=== PATIENT | male | born 1955 | race Caucasian/White ===

== ENCOUNTER 2023-08-07 11:40 | Inpatient (IN) | payer MEDICARE, BC ==
[~2023-08-07] VITALS: Ht 172.7 cm; Wt 67.3 kg
[2023-08-07] MEDS ORDERED: heparin 10,000 units/1 ML INJ IV PRN ×2 (12:00→13:10)
[2023-08-07 12:21] LABS: BASOPHILS % (AUTO) 0.2 % (0-1); EOSINOPHILS % (AUTO) 0.4 % (0-6); HEMATOCRIT 48.4 % (42.0-52.0); HEMOGLOBIN 16.5 g/dl (14.0-17.9); LYMPHOCYTES # (AUTO) 1.3 X10'3 (1.1-4.8); LYMPHOCYTES % (AUTO) 10.3 % (21-51); MEAN CORPUSCULAR HEMOGLOBIN 30.3 PG (27.0-31.0); MEAN CORPUSCULAR VOLUME 89.2 FL (78-98); MEAN PLATELET VOLUME 7.9 FL (7.4-10.4); MONOCYTES # (AUTO) 0.9 X10'3 (0-0.9); NEUTROPHILS # (AUTO) 10.7 X10'3 (1.8-7.7); NEUTROPHILS % (AUTO) 82.1 % (42-75); PLATELET COUNT 356 X10'3 (140-440); RED BLOOD COUNT 5.43 X10'6 (4.70-6.10)
[2023-08-07] MEDS: heparin 25,000 UNIT/250ml bag 250 ML IV PRN (12:28)
[2023-08-07 12:46] LABS: ALBUMIN 3.9 G/DL (3.4-5.0); ANION GAP 10 (8-16); BLOOD UREA NITROGEN 18 MG/DL (7-18); BUN/CREATININE RATIO 14.5 (10.0-20.0); CALCIUM 8.9 MG/DL (8.5-10.1); CHLORIDE 105 MMOL/L (99-107); CREATININE 1.24 MG/DL (0.60-1.10); GLUCOSE 104 MG/DL (70-104); POTASSIUM 4.3 MMOL/L (3.5-5.1); PRO BRAIN NATRIURETIC PEPTIDE 632 PG/ML (0-125); SODIUM 142 MMOL/L (135-145); TOTAL CARBON DIOXIDE 26.7 MMOL/L (24-32); eCRCL 54 ML/MIN; eGFR 58 ML/MIN
[2023-08-07] MEDS ORDERED: heparin 25,000 UNIT/250ml bag 250 ML IV PRN (13:10)
[2023-08-07] MEDS ORDERED: magnesium 2GM in 50ml NS 50 ML IV PRN (13:10)
[2023-08-07] MEDS ORDERED: ondansetron/PF 4mg/2ml inj IV PRN ×2 (13:10→18:25)
[2023-08-07] MEDS ORDERED: potassium Cl 20 mEq SR tablet PO PRN ×2 (13:10)
[2023-08-07] MEDS ORDERED: acetaminophen 325mg tablet PO PRN ×2 (13:10→18:25)
[2023-08-07] MEDS ORDERED: nitroGLYCERIN 0.4mg SUBLingual tab SL PRN (13:10)
[2023-08-07] MEDS ORDERED: magnesium 4gm in 100ml NS 100 ML IV PRN (13:10)
[2023-08-07] MEDS ORDERED: potassium Cl 40MEQ/1/2NS 520ml 520 ML IV PRN (13:10)
[2023-08-07] MEDS ORDERED: mag hydrox/Alum hydrox/simeth 30ml oral suspension PO PRN (13:10)
[2023-08-07] MEDS: normal saline 1000ml 1,000 ML IV SCH (13:29)
[2023-08-07] MEDS: atorvastatin 20mg tablet PO SCH ×2 (13:29→21:27)
[2023-08-07] MEDS: heparin 10,000 units/1 ML INJ IV ONE (13:44)
[2023-08-07] MEDS: PERFLUTREN PROTEIN-A MICROSPHR (Optison) 0.22 MG/ML 3ML VIAL IV ONE (13:44)
[2023-08-07 14:37] LABS: CHOL/HDL RATIO 6.6 (0.00-4.99); CHOLESTEROL 277 MG/DL (0-200); HDL CHOLESTEROL 42 MG/DL (35-60); LDL CHOLESTEROL 200 MG/DL (50-100); TRIGLYCERIDES 107 MG/DL (20-135)
[2023-08-07] MEDS ORDERED: fentaNYL/PF 50MCG/1 ML 2ML syringe ONE (15:26)
[2023-08-07] MEDS ORDERED: verapamil 2.5 mg/ml inj IV ONE (15:26)
[2023-08-07] MEDS ORDERED: midazolam 1 mg/ML 2ml injection ONE (15:26)
[2023-08-07] MEDS ORDERED: iohexol 350 MG/ML 50ML vial IV ONE (15:26)
[2023-08-07] MEDS ORDERED: heparin 1,000unit/ml 10ml vial 10 ML ONE (15:26)
[2023-08-07] MEDS ORDERED: nitroGLYCERIN 500mcg/5mL D5W 5 ML IV ONE ×2 (15:27→16:43)
[2023-08-07] MEDS ORDERED: iohexol 350MG/ML 100ml bottle IV ONE ×3 (15:27→16:59)
[2023-08-07] MEDS ORDERED: phenylephrine 10mg/ml inj. -priapism dosing ONE (16:37)
[2023-08-07] MEDS ORDERED: clopidogrel 300mg tablet ONE (17:14)
[2023-08-07 18:00] VITALS: BP 127/91; PULSE 97; RESP 16; TEMP 97.5; O2SAT 96
[2023-08-07] MEDS ORDERED: HYDROcodone/acetaminophen 5mg/325mg tablet PO PRN (18:25)
[2023-08-07] MEDS ORDERED: proCHLORperazine 10 MG/2 ml inj IV PRN (18:25)
[2023-08-07] MEDS ORDERED: HYDROcodone/acetaminophen 10/325mg tab PO PRN (18:25)
[2023-08-07] MEDS ORDERED: OXAZEpam 15mg capsule PO PRN (18:25)
[2023-08-07 20:00] VITALS: RESP 16
[2023-08-07] MEDS: K and/or MAG REPLACEMENT MC SCH (20:00)
[2023-08-07] MEDS: docusate sod 100mg capsule PO SCH (20:00)
[2023-08-07 22:00] VITALS: BP 116/82; PULSE 94; RESP 20; TEMP 97.4; O2SAT 93
[2023-08-08] VITALS (8 sets, daily range): BP systolic 97–114; BP diastolic 71–80; PULSE 85–118; RESP 10–21; TEMP 97.3–98.9; O2SAT 93–96
[2023-08-08 06:32] LABS: BASOPHILS % (AUTO) 0.2 % (0-1); EOSINOPHILS # (AUTO) 0.2 X10'3 (0-0.9); EOSINOPHILS % (AUTO) 1.8 % (0-6); HEMATOCRIT 42.5 % (42.0-52.0); HEMOGLOBIN 14.6 g/dl (14.0-17.9); LYMPHOCYTES # (AUTO) 1.3 X10'3 (1.1-4.8); LYMPHOCYTES % (AUTO) 11.4 % (21-51); MEAN CORPUSCULAR HEMOGLOBIN 30.4 PG (27.0-31.0); MEAN CORPUSCULAR HGB CONC 34.4 g/dL (33.0-36.5); MEAN CORPUSCULAR VOLUME 88.3 FL (78-98); MEAN PLATELET VOLUME 7.5 FL (7.4-10.4); MONOCYTES # (AUTO) 1.2 X10'3 (0-0.9); MONOCYTES % (AUTO) 9.8 % (2-12); NEUTROPHILS # (AUTO) 9.1 X10'3 (1.8-7.7); NEUTROPHILS % (AUTO) 76.8 % (42-75); PLATELET COUNT 288 X10'3 (140-440); RED BLOOD COUNT 4.81 X10'6 (4.70-6.10); RED CELL DISTRIBUTION WIDTH 13.8 % (11.5-14.5); WHITE BLOOD COUNT 11.9 X10'3 (4.5-11.0)
[2023-08-08 06:52] LABS: ALANINE AMINOTRANSFERASE 34 U/L (12-78); ALBUMIN 3.4 G/DL (3.4-5.0); ALBUMIN/GLOBULIN RATIO 1.1 (1.1-1.5); ALKALINE PHOSPHATASE 56 IU/L (46-116); ANION GAP 10 (8-16); ASPARTATE AMINO TRANSFERASE 42 U/L (10-37); BILIRUBIN,TOTAL 0.9 MG/DL (0.1-1.0); BLOOD UREA NITROGEN 17 MG/DL (7-18); BUN/CREATININE RATIO 14.7 (10.0-20.0); CHLORIDE 108 MMOL/L (99-107); CREATININE 1.16 MG/DL (0.60-1.10); GLUCOSE 96 MG/DL (70-104); MAGNESIUM 1.9 MG/DL (1.5-2.4); POTASSIUM 3.9 MMOL/L (3.5-5.1); SODIUM 141 MMOL/L (135-145); TOTAL CARBON DIOXIDE 23.5 MMOL/L (24-32); TOTAL PROTEIN 6.5 G/DL (6.4-8.2); eCRCL 57 ML/MIN; eGFR 62 ML/MIN
[2023-08-08] MEDS: nitroGLYCERIN 0.4mg/hour patch TD SCH (10:29)
[2023-08-08] MEDS: clopidogrel 75mg tablet PO SCH (10:30)
[2023-08-09] VITALS (15 sets, daily range): BP systolic 101–139; BP diastolic 65–98; PULSE 87–104; RESP 11–21; TEMP 97.1–98.5; O2SAT 94–98
[2023-08-09 07:25] LABS: BASOPHILS % (AUTO) 0.3 % (0-1); EOSINOPHILS # (AUTO) 0.3 X10'3 (0-0.9); EOSINOPHILS % (AUTO) 3.5 % (0-6); HEMATOCRIT 41.4 % (42.0-52.0); HEMOGLOBIN 14.1 g/dl (14.0-17.9); LYMPHOCYTES # (AUTO) 1.1 X10'3 (1.1-4.8); LYMPHOCYTES % (AUTO) 10.9 % (21-51); MEAN CORPUSCULAR HEMOGLOBIN 30.4 PG (27.0-31.0); MEAN CORPUSCULAR VOLUME 89.5 FL (78-98); MEAN PLATELET VOLUME 7.6 FL (7.4-10.4); MONOCYTES # (AUTO) 1.1 X10'3 (0-0.9); MONOCYTES % (AUTO) 11.1 % (2-12); NEUTROPHILS # (AUTO) 7.3 X10'3 (1.8-7.7); NEUTROPHILS % (AUTO) 74.2 % (42-75); PLATELET COUNT 285 X10'3 (140-440); RED BLOOD COUNT 4.62 X10'6 (4.70-6.10); WHITE BLOOD COUNT 9.8 X10'3 (4.5-11.0)
[2023-08-09 07:49] LABS: ALANINE AMINOTRANSFERASE 28 U/L (12-78); ALBUMIN/GLOBULIN RATIO 0.9 (1.1-1.5); ALKALINE PHOSPHATASE 56 IU/L (46-116); ANION GAP 10 (8-16); ASPARTATE AMINO TRANSFERASE 31 U/L (10-37); BILIRUBIN,TOTAL 0.7 MG/DL (0.1-1.0); BLOOD UREA NITROGEN 15 MG/DL (7-18); BUN/CREATININE RATIO 14.6 (10.0-20.0); CALCIUM 7.7 MG/DL (8.5-10.1); CHLORIDE 108 MMOL/L (99-107); CREATININE 1.03 MG/DL (0.60-1.10); GLUCOSE 94 MG/DL (70-104); MAGNESIUM 1.9 MG/DL (1.5-2.4); POTASSIUM 3.9 MMOL/L (3.5-5.1); SODIUM 141 MMOL/L (135-145); TOTAL CARBON DIOXIDE 23.5 MMOL/L (24-32); TOTAL PROTEIN 6.2 G/DL (6.4-8.2); eCRCL 64 ML/MIN; eGFR 72 ML/MIN
[2023-08-09] MEDS ORDERED: verapamil 2.5 mg/ml inj IV ONE (07:55)
[2023-08-09] MEDS ORDERED: midazolam 1 mg/ML 2ml injection ONE (07:55)
[2023-08-09] MEDS ORDERED: heparin 1,000unit/ml 10ml vial 10 ML ONE (07:56)
[2023-08-09] MEDS ORDERED: nitroGLYCERIN 500mcg/5mL D5W 5 ML IV ONE ×2 (07:56→09:03)
[2023-08-09] MEDS ORDERED: iohexol 350MG/ML 100ml bottle IV ONE (07:56)
[2023-08-09] MEDS ORDERED: iohexol 350 MG/ML 50ML vial IV ONE (07:56)
[2023-08-09] MEDS ORDERED: fentaNYL/PF 50MCG/1 ML 2ML syringe ONE (07:56)
[2023-08-09] MEDS ORDERED: LIDOcaine 1% (10mg/ml) 2ml vial ONE (08:45)
[2023-08-09] MEDS ORDERED: heparin 25,000 UNIT/250ml bag 250 ML IV ONE (08:56)
[2023-08-09] MEDS ORDERED: clopidogrel 300mg tablet ONE (09:35)
[2023-08-09] MEDS ORDERED: FLUT1BLS4 INH (16:40)
[2023-08-10 02:00] VITALS: BP 120/84; PULSE 78; RESP 18; TEMP 97.1; O2SAT 96
[2023-08-10 06:30] VITALS: BP 132/82; PULSE 80; RESP 18; TEMP 98.2; O2SAT 96
[2023-08-10] MEDS: aspirin 81mg, enteric-coated 1 TAB TABLET.DR PO SCH (07:29)
[2023-08-10 07:42] LABS: BASOPHILS % (AUTO) 0.4 % (0-1); EOSINOPHILS # (AUTO) 0.5 X10'3 (0-0.9); EOSINOPHILS % (AUTO) 5.3 % (0-6); HEMATOCRIT 40.2 % (42.0-52.0); HEMOGLOBIN 13.8 g/dl (14.0-17.9); LYMPHOCYTES # (AUTO) 1.2 X10'3 (1.1-4.8); LYMPHOCYTES % (AUTO) 11.7 % (21-51); MEAN CORPUSCULAR HEMOGLOBIN 30.6 PG (27.0-31.0); MEAN CORPUSCULAR HGB CONC 34.3 g/dL (33.0-36.5); MEAN CORPUSCULAR VOLUME 89.1 FL (78-98); MEAN PLATELET VOLUME 7.8 FL (7.4-10.4); MONOCYTES # (AUTO) 1.1 X10'3 (0-0.9); MONOCYTES % (AUTO) 11.4 % (2-12); NEUTROPHILS # (AUTO) 7.1 X10'3 (1.8-7.7); NEUTROPHILS % (AUTO) 71.2 % (42-75); PLATELET COUNT 265 X10'3 (140-440); RED BLOOD COUNT 4.51 X10'6 (4.70-6.10); RED CELL DISTRIBUTION WIDTH 13.9 % (11.5-14.5)
[2023-08-10] MEDS ORDERED: CLOP75TA34 PO (07:49)
[2023-08-10] MEDS ORDERED: NITR0.4T51 SL (07:49)
[2023-08-10] MEDS ORDERED: ASPI-1071 PO (07:49)
[2023-08-10] MEDS ORDERED: ATOR80TA PO (07:49)
[2023-08-10 08:28] LABS: ALANINE AMINOTRANSFERASE 29 U/L (12-78); ALBUMIN 2.9 G/DL (3.4-5.0); ALBUMIN/GLOBULIN RATIO 0.8 (1.1-1.5); ALKALINE PHOSPHATASE 54 IU/L (46-116); ANION GAP 8 (8-16); ASPARTATE AMINO TRANSFERASE 22 U/L (10-37); BILIRUBIN,TOTAL 0.6 MG/DL (0.1-1.0); CALCIUM 8.3 MG/DL (8.5-10.1); CHLORIDE 109 MMOL/L (99-107); CREATININE 1.03 MG/DL (0.60-1.10); GLUCOSE 102 MG/DL (70-104); SODIUM 141 MMOL/L (135-145); TOTAL CARBON DIOXIDE 23.8 MMOL/L (24-32); TOTAL PROTEIN 6.5 G/DL (6.4-8.2); eCRCL 64 ML/MIN; eGFR 72 ML/MIN
[2023-08-10 08:33] LABS: BLOOD UREA NITROGEN 12 MG/DL (7-18); BUN/CREATININE RATIO 11.7 (10.0-20.0); POTASSIUM 3.7 MMOL/L (3.5-5.1)
== END 2023-08-10 11:45 | disposition home or self-care (01) | DRG 321 ==
LOC: ER 11:41 → ED HOLD 13:20 → PCU 3S 17:54
PROVIDERS: ADMIT Family Medicine; ATTEND Family Medicine
PROC: 027135Z Dilation of Coronary Artery, Two Arteries with Two Drug-eluting Intraluminal Devices, Percutaneous Approach (ICD-10-PCS; principal; 2023-08-07)
PROC: 4A023N7 Measurement of Cardiac Sampling and Pressure, Left Heart, Percutaneous Approach (ICD-10-PCS; 2023-08-07)
PROC: B2111ZZ Fluoroscopy of Multiple Coronary Arteries using Low Osmolar Contrast (ICD-10-PCS; 2023-08-07)
PROC: B2151ZZ Fluoroscopy of Left Heart using Low Osmolar Contrast (ICD-10-PCS; 2023-08-07)
PROC: 027034Z Dilation of Coronary Artery, One Artery with Drug-eluting Intraluminal Device, Percutaneous Approach (ICD-10-PCS; 2023-08-09)
PROC: 02703ZZ Dilation of Coronary Artery, One Artery, Percutaneous Approach (ICD-10-PCS; 2023-08-09)
PROC: B210YZZ Fluoroscopy of Single Coronary Artery using Other Contrast (ICD-10-PCS; 2023-08-09)
DX: I21.4 Non-ST elevation (NSTEMI) myocardial infarction (principal); N17.0 Acute kidney failure with tubular necrosis; I25.10 Atherosclerotic heart disease of native coronary artery without angina pectoris; E11.9 Type 2 diabetes mellitus without complications; E78.00 Pure hypercholesterolemia, unspecified; J43.9 Emphysema, unspecified; I10 Essential (primary) hypertension; Z63.4 Disappearance and death of family member; Z80.6 Family history of leukemia; Z79.899 Other long term (current) drug therapy; Z82.3 Family history of stroke; Z86.16 Personal history of COVID-19; Z87.891 Personal history of nicotine dependence; Z88.0 Allergy status to penicillin; Z88.7 Allergy status to serum and vaccine
CPT/HCPCS: 93306; 93458; 96365; 99285; C9600; C9601; 36415; 71045; 76937; 80048; 80053; 80061; 83735; 83880; 84484; 85025; 85347; 93005; 99152; 99153; A6209; A6258; C1725; C1751; C1769; C1874; C1894; G0378; J1644; J2250; J2370; J3010; J3490; J7030; Q9967